=== PATIENT | male | born 1985 | race Caucasian/White ===

== ENCOUNTER 2016-06-03 15:05 | Emergency (ER) | payer BC ==
[~2016-06-03] VITALS: Ht 177.8 cm; Wt 90.0 kg
[2016-06-03] MEDS ORDERED: IPRATROPIUM BROMIDE (0.02%) 0.5MG/2.5ML NEB HHN STA (15:26)
[2016-06-03] MEDS ORDERED: ALBUTEROL (0.083%) 2.5MG/3ML NEB HHN STA (15:26)
[2016-06-03] MEDS ORDERED: METHYLPREDNISOLONE SOD SUCC 125 MG/2 ML VIAL IM STA (15:26)
[2016-06-03 18:14] VITALS: BP 109/51
== END 2016-06-03 18:59 | disposition home or self-care (01) ==
LOC: ER 15:06
DX: J45.901 Unspecified asthma with (acute) exacerbation (principal); R05 Cough
CPT/HCPCS: 71010; 94640; 96372; 99283; J2930; J7611; Z7610